=== PATIENT | female | born 1990 | race Two or more races ===

== ENCOUNTER 2018-09-18 08:35 | Emergency (ER) | payer MEDICAID ==
[~2018-09-18] VITALS: Ht 157.5 cm; Wt 61.2 kg
[2018-09-18 09:54] VITALS: BP 134/83
[2018-09-18] MEDS ORDERED: PROMETHAZINE HCL 25 MG/ML 1ML IM ONE (11:15)
[2018-09-18] MEDS ORDERED: KETOROLAC TROMETH 30 MG/ML 1ML VIAL IM ONE (11:15)
[2018-09-18] MEDS ORDERED: diphenhdrAMINE HCL 25 MG CAP PO ONE (11:15)
== END 2018-09-18 11:56 | disposition home or self-care (01) ==
LOC: ER 08:35
DX: R51 Headache (principal); R11.0 Nausea
CPT/HCPCS: 96372; 99283; J1885; J2550

== ENCOUNTER 2018-10-31 17:01 | Emergency (ER) | payer MEDICAID ==
[~2018-10-31] VITALS: Ht 157.5 cm; Wt 61.2 kg
[2018-10-31 18:38] LABS: Urine Bacteria FEW /hpf (None Seen); Urine Blood Negative /uL (Negative); Urine Mucus FEW (None Seen); Urine Specific Gravity 1.034 (1.001-1.035); Urine WBC 8 /hpf (0 - 5)
[2018-10-31 18:50] LABS: Basophils # (auto) 0 uL; Basophils % (auto) 0.8 % (0.0-2.0); Eosinophils # (auto) 0.2 uL; Eosinophils % (auto) 3.2 % (0.0-7.0); Hematocrit 36.2 % (36.0-46.0); Hemoglobin 11.6 g/dL (12.2-16.2); Lymphocytes # (auto) 2.3 uL; Lymphocytes % (auto) 37.4 % (10.0-50.0); Mean Corpuscular Hemoglobin 27.5 pg (28.0-32.0); Mean Corpuscular Hgb Conc. 31.9 g/dL (32.0-36.0); Mean Corpuscular Volume 86.2 fL (80.0-100.0); Monocytes # (auto) 0.4 uL; Monocytes % (auto) 5.9 % (0.0-12.0); Neutrophils # (auto) 3.3 uL; Neutrophils % (auto) 52.7 % (37.0-80.0); Platelet Count (auto) 242 10^3/uL (140-450); Red Cell Distribution Width 15.5 % (11.8-14.3); White Blood Cell 6.2 10^3/uL (4.4-10.8)
[2018-10-31 19:04] LABS: Albumin 3.6 g/dL (3.4-5.0); Calcium 8.6 mg/dL (8.5-10.1)
[2018-10-31 19:09] LABS: BUN/Creatinine Ratio 13.9; Bilirubin, Total 0.4 mg/dL (0.2-1.0); Total Protein 7.2 g/dL (6.4-8.2)
[2018-10-31 23:39] VITALS: BP 125/70
== END 2018-10-31 23:40 | disposition home or self-care (01) ==
LOC: ER 17:01
DX: O23.41 Unspecified infection of urinary tract in pregnancy, first trimester (principal); Z3A.01 Less than 8 weeks gestation of pregnancy
CPT/HCPCS: 36415; 76801; 76817; 80053; 81001; 83690; 84702; 85025

== ENCOUNTER 2019-05-24 12:20 | Observation (INO) | payer MEDICAID ==
[~2019-05-24] VITALS: Ht 157.5 cm; Wt 66.7 kg
[2019-05-24 13:10] VITALS: BP 136/85
[2019-05-24] MEDS ORDERED: ACETAMINOPHEN 325 MG TAB PO ONE (14:00)
[2019-05-24] MEDS ORDERED: PREN-96 PO (15:53)
== END 2019-05-24 17:55 | disposition home or self-care (01) | DRG 566 ==
LOC: EDBD 12:20 → ER 12:20 → LDRP 14:04
PROVIDERS: ADMIT Obstetrics & Gynecology; ATTEND Obstetrics & Gynecology
DX: O9A.213 Injury, poisoning and certain other consequences of external causes complicating pregnancy, third trimester (principal); S39.012A Strain of muscle, fascia and tendon of lower back, initial encounter; Z88.0 Allergy status to penicillin; Z3A.35 35 weeks gestation of pregnancy; V43.52XA Car driver injured in collision with other type car in traffic accident, initial encounter; Y93.89 Activity, other specified; Y92.410 Unspecified street and highway as the place of occurrence of the external cause
CPT/HCPCS: 59025; 76815; 81002; 99284; G0378

== ENCOUNTER 2023-05-06 11:40 | Emergency (ER) | payer MEDICAID ==
[~2023-05-06] VITALS: Ht 157.5 cm; Wt 70.8 kg
[~2023-05-06 11:40] MED LIST: PREN-96 PO
[2023-05-06 13:18] VITALS: BP 127/86; PULSE 75; RESP 18; TEMP 98.3; O2SAT 97
[2023-05-06] MEDS ORDERED: EPINEPHrine HCL 1 MG/1 ML AMP SC ONE (14:00)
[2023-05-06] MEDS ORDERED: METH4PAK PO (14:37)
[2023-05-06] MEDS ORDERED: HYDR25CA PO (14:37)
== END 2023-05-06 14:50 | disposition home or self-care (01) ==
LOC: ER 11:40
DX: T78.40XA Allergy, unspecified, initial encounter (principal); Z79.899 Other long term (current) drug therapy; Z88.0 Allergy status to penicillin; Y92.89 Other specified places as the place of occurrence of the external cause
CPT/HCPCS: 96372; 99283; J0171